=== PATIENT | male | born 1980 | race African-American/Black ===

== ENCOUNTER 2017-07-26 15:00 | Emergency (ER) | payer SELFPAY ==
[~2017-07-26] VITALS: Ht 177.8 cm; Wt 65.8 kg
--- NOTE | ~2017-07-26 | CR142 ---
[facility] A Service of [facility] RADIOLOGY TEXT RESULTS PATIENT: LAUREEN CASTELLON LOCATION: CFTX : 80 UNIT #: [id number] AGE: [address]: Shivani Daley SEX: M ORDER DR: [id number] [facility] [address] [place], [place] [address] [id number] E MR#: [id number] Acc #: [id number] NAME: LAUREEN CASTELLON : 1980 SEX: M STUDY DATE/TIME: 07/26/2017 15:54 UNIT: CFTX ROOM: STUDY DESCRIPTION: CR Hand Min 3 Views Rt Attending Physician: Shivani Daley Pa-C Ordering Physician: Ed Doctor [id number] [facility] Primary Care Physician: No Primary Care Physician MEDICAL IMAGING REPORT This report is preliminary unless electronic signature is present EXAM Right hand, 07/26/17 HISTORY Jammed hand 2 hours ago while playing basketball with pain in 5th digit. FINDINGS Three views of the right hand were obtained. There is a dislocation of the 5th DIP joint with dorsal displacement of the distal phalanx. No fracture is visible. IMPRESSION The 5th distal phalanx is dislocated dorsally. No fracture is visible. The other bones are normal. Dictated by... Shubham Roman M.D. THIS IS AN ELECTRONICALLY VERIFIED REPORT Shubham Roman M.D. at 07/26/2017 11:49 PM GARY/melvina TD: 07/26/2017 23:46 JOB #: [id number] MEDICAL IMAGING REPORT Page 1 of 1 COPY
--- NOTE | ~2017-07-26 | CR115 ---
[facility] A Service of [facility] RADIOLOGY TEXT RESULTS PATIENT: LAUREEN CASTELLON LOCATION: CFTX : 80 UNIT #: [id number] AGE: [address]: Shivani Daley SEX: M ORDER DR: [id number] [facility] [address] [place], [place] [address] [id number] E MR#: [id number] Acc #: [id number] NAME: LAUREEN CASTELLON : 1980 SEX: M STUDY DATE/TIME: 07/26/2017 17:27 UNIT: CFTX ROOM: STUDY DESCRIPTION: CR Finger 2 View 5Th Rt Attending Physician: Shivani Daley Pa-C Ordering Physician: Ed Doctor [id number] [facility] Primary Care Physician: Primary Care Physician No MEDICAL IMAGING REPORT This report is preliminary unless electronic signature is present EXAM Right fifth finger. INDICATIONS Reduction of DIP dislocation, evaluate position of bones. FINDINGS Three views of the right fifth finger were obtained. The dislocation of the DIP joint has been reduced and there is no fracture visible. Dictated by... Shubham Roman M.D. THIS IS AN ELECTRONICALLY VERIFIED REPORT Shubham Roman M.D. at 07/27/2017 7:57 PM GARY/lance TD: 07/27/2017 11:35 JOB #: [id number] MEDICAL IMAGING REPORT Page 1 of 1 COPY
[~2017-07-26 15:00] MED LIST: BACTRIM DS TABL1 TA1 PO; BENADRYL25 M3 PO; TRAMADOL HCL50 M1 PO
== END 2017-07-26 18:00 | disposition home or self-care (01) ==
LOC: CED 15:00 → CFTX 15:00
DX: S63.296A Dislocation of distal interphalangeal joint of right little finger, initial encounter (principal); F17.200 Nicotine dependence, unspecified, uncomplicated; W21.05XA Struck by basketball, initial encounter; Y93.67 Activity, basketball; Y92.830 Public park as the place of occurrence of the external cause; Y99.8 Other external cause status
CPT/HCPCS: 26770; 73130; 73140; 99283